=== PATIENT | female | born 1995 | race African-American/Black ===

== ENCOUNTER 2019-08-15 17:52 | Emergency (ER) | payer BC ==
[2019-08-15 18:36] VITALS: Wt 84.1 kg
[2019-08-15] MEDS ORDERED: BUTALB-APAP-CA1 EACH PO (19:45)
[2019-08-15] MEDS ORDERED: ZOFRAN ODT4 MG/UDTAB PO (19:45)
[2019-08-15 21:04] VITALS: BP 142/86
== END 2019-08-15 20:58 | disposition home or self-care (01) ==
LOC: D.ER 17:52
DX: G43.909 Migraine, unspecified, not intractable, without status migrainosus (principal); R11.0 Nausea